=== PATIENT | female | born 1955 | race Caucasian/White ===

== ENCOUNTER 2018-02-23 10:12 | Day surgery (SDC) | payer BC, MEDICARE ==
[2018-02-23] MEDS ORDERED: PROPOFOL 40 ML (11:58)
== END 2018-02-23 12:46 | disposition home or self-care (01) ==
LOC: GIL 10:12
DX: D12.5 Benign neoplasm of sigmoid colon (principal); K29.60 Other gastritis without bleeding; K57.90 Diverticulosis of intestine, part unspecified, without perforation or abscess without bleeding; K64.8 Other hemorrhoids; K21.9 Gastro-esophageal reflux disease without esophagitis; K44.9 Diaphragmatic hernia without obstruction or gangrene; I10 Essential (primary) hypertension; J45.909 Unspecified asthma, uncomplicated; Z86.718 Personal history of other venous thrombosis and embolism; Z79.01 Long term (current) use of anticoagulants
CPT/HCPCS: 43239